=== PATIENT | female | born 1955 | race Caucasian/White ===

== ENCOUNTER 2017-04-11 06:26 | Day surgery (SDC) | payer BC, SELFPAY ==
[2017-04-11] VITALS (13 sets, daily range): BP systolic 84–135; BP diastolic 45–85; PULSE 60–73; RESP 16–18; TEMP 36.2–36.8; O2SAT 94–99; BMI 27.3
--- NOTE | 2017-04-11 | IMM_PTH ---
PATIENT: MICHELLE BETANCOURT LOC: EN U#:[id number] AGE/SX: 62/F ROOM: RE04/11/[address]: Dr. Ray Casas MD : 1955 BED: DIS: 04/11/2017 SPEC #: [id number] RECD: 04/12/17 11:26 STATUS: LUI REIsabelle #: [id number] KEARA: 04/11/17 00:[address]: Ray Casas DEPT: IMMUNOHISTOCHEMISTRY RECD BY: Caty Leyva ENTERED: 04/12/17 11:27 SP TYPE: IMMUNO OTHR DR: Dr. Nathaniel Veliz MD Tissues: B - Stomach, NOS Procedures: H Pylori (initial) PHYSICIAN & INSTITUTION [place] [address] SPECIMEN INFORMATION: Tissue Source: B ? Antrum biopsy Clinical Info: GERD Specimen Number: [id number] CPT code: 65332 METHODOLOGY: Deparaffinized sections of prefer/formalin-fixed tissue or PAP/DQ stained slides are incubated with monoclonal/polyclonal antibodies/oligonucleotide probes. Localization is made via biotin free immunoperoxidase method. Appropriate controls are performed and reacted as expected. Results on target cell population are indicated in the following table: RESULTS: ANTIBODY / CLONE RESULT Block B H Pylori (polyclonal) negative These tests were developed and their performance characteristics determined by [facility]. They may not have been cleared or approved by the U.S. Food and Drug Administration. The FDA has determined that such clearance or approval is not necessary. INTERPRETATION: B. Antrum, biopsy: Negative for Helicobacter pylori organisms. SJ:laura 04/14/17
--- NOTE | 2017-04-11 07:35 | EGD_PTH ---
PATIENT: MICHELLE BETANCOURT LOC: EN U#:[id number] AGE/SX: 62/F ROOM: RE04/11/[address]: Dr. Ray Casas MD : 1955 BED: DIS: 04/11/2017 SPEC #: [id number] RECD: 04/11/17 12:30 STATUS: LIU SHARDA #: [id number] KEARA: 04/11/17 07:[address]: Ray Casas DEPT: SURGICAL PATHOLOGY RECD BY: Dale Valdes ENTERED: 04/11/17 13:27 SP TYPE: EGD BIOPSY OT DR: Dr. Nathaniel Veliz MD Tissues: A - Duodenum, NOS B - Gastric mucous membrane C - Esophageal mucous membrane D - Esophageal mucous membrane Procedures: Surgery Specimen Level IV HEADER OPERATION: EGD with biopsy PRE-OP DIAGNOSIS: GERD TISSUE SUBMITTED: A ? Biopsy duodenum, B ? Biopsy antrum, C ? Biopsy distal esophagus, D ? Mid esophagus MICROSCOPIC DIAGNOSIS A. Duodenum, biopsy: Fragment of small intestinal mucosa, no pathologic diagnosis. B. Antrum, biopsy: Mild gastritis. C. Distal esophagus, biopsy: Fragments of squamous epithelium, no pathologic diagnosis. D. Mid esophagus, biopsy: Fragment of squamous epithelium, no pathologic diagnosis. Fragment of food particle. SJ:laura 04/12/17 COMMENT B. Immunohistochemistry ([id number]) for H. pylori will be performed and results will be reported separately. MICROSCOPIC DESCRIPTION Slides are reviewed. B. The specimen shows fragments of gastric mucosa with chronic inflammatory cell infiltrates in the lamina propria consisting of lymphocytes and plasma cells, consistent with mild chronic gastritis. Focal mucosal congestion and hemorrhage are also noted. GROSS DESCRIPTION A - Received in fixative is one container labeled with the patient's name and designated biopsy duodenum. The specimen consists of one irregular fragment of light gonzales soft tissue that measures 0.4 x 0.2 x 0.1 cm. The specimen is totally submitted in one cassette. B - Received in fixative is one container labeled with the patient's name and designated antrum. The specimen consists of one irregular fragment of light gonzales soft tissue that measures 0.3 x 0.2 x 0.1 cm. The specimen is totally submitted in one cassette. C - Received in fixative is one container labeled with the patient's name and designated distal esophagus. The specimen consists of two irregular fragments of light gonzales soft tissue that in aggregate measure 0.4 x 0.2 x 0.1 cm. The specimen is totally submitted in one cassette. D - Received in fixative is one container labeled with the patient's name and designated mid esophagus. The specimen consists of one irregular fragment of light gonzales soft tissue that measures 0.5 x 0.2 x 0.1 cm. The specimen is totally submitted in one cassette. / SJ:rg 04/11/17 TC:3 CPT: 72146 x4
--- NOTE | 2017-04-11 07:47 | PCM.OPRPT ---
Problem List (1) GERD (gastroesophageal reflux disease) Status: Acute Report of Operation Date of Procedure: 04/11/17 Pre-Operative Diagnosis: Gastroesophageal reflux disease Post-Operative Diagnosis: Hiatal hernia. Retained gastric contents/food. Antral gastritis Surgery/Procedure Performed:: Esophagogastroduodenoscopy with duodenal and antral and distal and mid esophageal biopsies Description of Surgical Findings:: Timeout and informed consent was obtained. 62-year-old female was taken to the endoscopy suite. Her oropharynx was anesthetized with Cetacaine. She was placed in the left lateral decubitus position. Throughout the procedure total of 100 mg Demerol and 3.5 g of Versed were given as intravenous sedation. Under direct visitation gastroscope was inserted in the proximal mid distal esophagus inspected. A moderate hiatal hernia noted. The EG junction was at 40 cm. I did not see any obvious inflammatory changes of the distal esophagus. Upon entering the stomach however immediately retained food products were noted. This was apparently 8 hours after the last solid food was eaten. There was mild diffuse erythema of the antrum. The scope was advanced through the pylorus. The first and second portions of the duodenum inspected. This did not appear to be remarkable. Duodenal biopsy was obtained. The scope was withdrawn retroflexed hiatal hernia noted and photographs obtained. The food products were jose de jesus in the greater curvature. Partially obstructing view to the amount of food present. The scope was placed back in antegrade viewing area. There was certain chronic erythema of the antrum. Biopsy was obtained. Excess fluid and air was aspirated free. The scope was withdrawn. The fluid was solid enough that I could not irrigate it or remove it. Distal esophageal biopsies were obtained. Mid esophageal biopsies were obtained. Subsequently the pH probe was appropriately checked and then it was inserted to 34 cm. Suction was applied. The device was in the release. I reinserted the gastroscope to assure positioning of the probe. No apparent complications. Impression Hiatal hernia. No obvious findings of esophagitis. Diffuse antral gastritis noted with retained solid food. Successfully deployed pH probe. The patient will return to the office for pathology and pH probe results. Pending these results might consider gastric emptying study. Cc: Dr. Ivan Casas M.D., F.A.C.S. Type of Anesthesia:: IV Sedation
== END 2017-04-11 09:01 | disposition home or self-care (01) ==
LOC: EN 06:27 → AC 06:30
PROVIDERS: Family Provider Family Medicine; PCP Family Medicine; Visit Provider Surgery
PROC: (CPT 43235; principal; 2017-04-11 07:00)
DX: K29.70 Gastritis, unspecified, without bleeding (principal); K44.9 Diaphragmatic hernia without obstruction or gangrene; K59.00 Constipation, unspecified; M81.0 Age-related osteoporosis without current pathological fracture; I10 Essential (primary) hypertension; Z79.82 Long term (current) use of aspirin; Z79.899 Other long term (current) drug therapy; Z87.891 Personal history of nicotine dependence
CPT/HCPCS: 43239; 88305; 88342; J7120

== ENCOUNTER → 2017-04-19 12:04 | Outpatient (CLI) | payer BC, SELFPAY ==
[2017-04-11 07:01] VITALS: BMI 27.3
[2017-04-11 08:59] VITALS: BP 107/68
--- NOTE | 2017-04-19 12:05 | NM_ITS ---
CLINICAL: 62-year-old female with history of abdominal pain. SEMI-SOLID PHASE 99m Tc SULFUR COLLOID GASTRIC EMPTYING STUDY COMPARISON: None available FINDINGS: The patient was administered 1.1 mCi of 99m Tc sulfur colloid mixed with oatmeal and consumed per os. Image acquisitions in the anterior-posterior projections for a total of 60 minutes. There is prompt visualization of the stomach. There is no gastroesophageal reflux identified. The T1/2 linear fit was calculated to be 46.6 minutes, (Normal: 12-56 minutes). NM/Gastric Emptying Study IMPRESSION: 1. NORMAL 99m Tc sulfur colloid semi-solid phase (oatmeal) gastric emptying imaging examination. A. There is normal and preserved semi-solid phase gastric emptying compared to normal controls with maintained first order kinetics throughout all components of the examination. (Jakub et al, J Nucl Med Tech 38: 186, 2010). Electronically Signed: Beau Andrade DO at 10:43 EST Tel , Service support ,
== END ==
PROVIDERS: Family Provider Family Medicine; PCP Family Medicine; Visit Provider Surgery
DX: R10.9 Unspecified abdominal pain (principal); K59.00 Constipation, unspecified
CPT/HCPCS: 78264; A9541

== ENCOUNTER → 2017-06-01 13:47 | Outpatient (CLI) | payer BC, SELFPAY ==
--- NOTE | 2017-06-01 13:50 | VDLE_ITS ---
Reason For Study: LEG PAIN AND SWELLING/Lump LT Anterior calf RIGHT LEFT GSV is normal. GSV is normal. CFV is compressible, spontaneous, phasic, CFV is compressible, spontaneous, phasic, competent and demonstrates normal competent, and demonstrates normal augmentation. augmentation. FV is compressible, spontaneous, phasic, FV is compressible, spontaneous, phasic, competent and demonstrates normal competent and demonstrates normal augmentation. augmentation. POP V is compressible, spontaneous, phasic, POP V is compressible, spontaneous, phasic, competent and demonstrates normal competent and demonstrates normal augmentation. augmentation. T/P Trunk is compressible. T/P Trunk is compressible. PTV is compressible. PTV is compressible. RT PerV is compressible. LT PerV is compressible. Procedure Heterogenous structure noted Lt anterior Exam performed in department. prox calf measuring 1.2 x .46 cm. Non- A preliminary report was called and/or faxed vascular. to Dr. Veliz. Interpretation Summary No evidence for acute deep venous thrombosis bilateral lower extremities with patent and compressible bilateral great saphenous veins. 1.2 x 0.46cm non-vascular soft tissue mass left anterior proximal calf. History of fracture/repair suggests possible hematoma--clinical correlation would be appropriate. Ordering Physician: Nathaniel Veliz Referring Physician: Nathaniel Veliz Performed By: Monica Sorensen RVT
== END ==
PROVIDERS: Family Provider Family Medicine; PCP Family Medicine; Visit Provider Family Medicine
DX: M79.89 Other specified soft tissue disorders (principal); M79.661 Pain in right lower leg; M79.662 Pain in left lower leg
CPT/HCPCS: 93970

== ENCOUNTER → 2018-05-11 14:11 | Outpatient (CLI) | payer BC, SELFPAY | PROVIDERS: Family Provider Family Medicine; PCP Family Medicine; Referring Provider Internal Medicine Cardiovascular Disease; Visit Provider Internal Medicine Cardiovascular Disease | DX: R00.2 Palpitations (principal); I10 Essential (primary) hypertension | CPT/HCPCS: 93225; 93226 ==

== ENCOUNTER → 2018-07-09 16:24 | Outpatient (CLI) | payer BC, SELFPAY ==
--- NOTE | 2018-07-09 | ASPS_PTH ---
PATIENT: MICHELLE BETANCOURT [facility] U#:[id number] AGE/SX: 70/F ROOM: RE07/09/[address]: Dr. Ray Casas MD : 1955 BED: DIS: SPEC #: [id number] RECD: 07/09/18 16:15 STATUS: LUI SHARDA #: [id number] KEARA: 07/09/18 00:[address]: Ray Casas DEPT: CYTOLOGY RECD BY: River Diallo ENTERED: 07/10/18 12:06 SP TYPE: ASPIRATION OTHR DR: Dr. Nathaniel Veliz MD Tissues: Thyroid gland, NOS Procedures: Special Stain Group II Cytology Other HEADER OPERATION: Left thyroid FNA PRE-OP DIAGNOSIS: Left thyroid nodule TISSUE SUBMITTED: Left thyroid slides x8 DIAGNOSIS CYTOLOGY Left thyroid nodule, FNA (smears): Consistent with chronic lymphocytic thyroiditis. Adequate for evaluation. See cytology study and comment. SJ:laura 07/11/18 COMMENT Correlation with clinical, radiologic findings and appropriate follow up are necessary. CYTOLOGY STUDY Slides are reviewed. The specimen predominantly consists of polymorphous population of lymphocytes. CYTOLOGY GROSS Received are eight smears labeled with the patient's name and designated per the requisition as left thyroid. Submitted for staining. / 07/10/18 TC:3 CPT: 88949
[2018-07-09 13:34] VITALS: BMI 29.0
== END ==
PROVIDERS: Family Provider Family Medicine; PCP Family Medicine; Referring Provider Surgery; Visit Provider Surgery
DX: E04.1 Nontoxic single thyroid nodule (principal)
CPT/HCPCS: 88161; 88313

== ENCOUNTER → 2019-01-24 11:32 | Outpatient (CLI) | payer MEDICARE, SELFPAY ==
[2018-07-09 13:34] VITALS: BMI 29.0
--- NOTE | 2019-01-24 14:16 | STRESSREP_ITS ---
Stress Test Report Date: 01/24/2019 Procedure: Exercise tolerance test Indications: Chest pain Consent: Per the patient Procedure: The patient exercised on a Eamon protocol for 5 minutes and 59 seconds achieving a peak heart rate of 151 bpm (97% predicted maximal heart rate) with a peak blood pressure 152/82 mmHg and a peak MET capacity of approximately 7 mET's. The baseline ECG demonstrated sinus rhythm. The peak exercise ECG demonstrated sinus tachycardia with no significant ischemic EKG changes. Patient had occasional PVCs and multiple PACs at peak exercise. The functional capacity was considered normal for age. The patient had no complaint of chest discomfort during exercise or recovery. The examination was discontinued secondary to dyspnea, lightheadedness. Impression: 1. Technically adequate (percent predicted maximal heart rate greater than 85%) exercise tolerance test 2. Stress test is negative for exercise-induced chest pain. 3. Stress test test is negative for exercise-induced EKG changes of ischemia. 4. Functional capacity is normal for age This note was generated with [employer] software. It may contain incorrect words, spelling, and punctuation that were not noted in checking the note before signing.
== END ==
PROVIDERS: Family Provider Family Medicine; PCP Family Medicine; Referring Provider Family Medicine; Visit Provider Family Medicine
DX: R07.89 Other chest pain (principal)
CPT/HCPCS: 93017

== ENCOUNTER 2020-01-06 17:30 | Outpatient (RCR) | payer MEDICARE, OTHER, SELFPAY ==
[2018-07-09 13:34] VITALS: BMI 29.0
--- NOTE | 2019-11-25 17:44 | HP.PTEVAL ---
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 Date of Evaluation: 11/25/19 Physical Therapist: Miley Baca, PT, Cert MDT - Visit Plan Frequency: 2-3x /Week Duration: 4-6 Weeks Plan: AQUATIC THERAPY FOR PAIN RELEIF, POSTURE CORRECTION/STRENGTHENING, INSTRUCTION IN APPROPRIATE BODY MECHANICS AND ACTIVITY MODIFICATIONS. DLS STARTING WITH A NEUTRAL SPINE PROGRESSING ROM TOLERATED. LOVELY LE ROM, STRETCHING AND STRENGTHENING. HEP INSTRUCTION. 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 Disability: NO. Present symptoms: MID AND LOW BACK PAIN USUALLY MORE L > RIGHT. LEFT LE PAIN, NUMBNESS AND TINGLING TO THE ANKLE. Present since: YEARS WITH INCREASED PAIN 2007. Pain Scale: WORST 9/10, LEAST 2/10. Currently: 05/20. Commenced as a result of: SCOLIOSIS, DEGENERATION. THROWN OFF A TRACTOR IN 2007 AND BROKE LEFT LEG. ORIF LEFT TIBIA 2007. Symptoms at onset: BACK. Worse: SITTING IN STRAIGHT CHAIRS, DOING A LOT OF WALKING, TRYING TO DO NORMAL HOUSEWORK, GARDENING. Better: RESTING IN A RECLINER. Disturbed sleep: YES. Previous history/Previous treatment: NO BACK SURGERY. NO ALTA'S EXCEPT CERVICAL ALTA ABOUT 6 YEARS AGO. HAS TRIED PT FOR BACK AND LEG BUT DOESN'T SEEM TO HELP. HAS BEEN SEEING A CHIROPRACTOR FOR ABOUT TWO YEARS FOR ADJUSTMENTS, STRETCHING AND HAS DONE SOME PT THERE TOO - STATES IT HELPED FOR AWHILE BUT THE TRACTION HURT AND STARTED TO MAKE IT WORSE. HAS NOT BEEN BACK TO CHIR[facility] IN ABOUT 5 MONTHS. Coughing/sneezing/straining: NOT USUALLY UNLESS BACK IS FLARED UP. Gait: NORMAL UNLESS GOES TOO FAR. Difficulty initiating urinatin: NO. Unexplained weight loss: NO. Imaging: RECENT MRI AT [facility] - PER PATIENT REPORT THE MRI SHOWED SCOLIOSIS THAT IS IMPEDING ON L4 L5 NERVES. PMH: LOW BLOOD PRESSURE (96/50 LAST NIGHT). STATES HER PCP HAS REFERRED HER TO A EMERGENCY VEHICLE DRIVER. ANEMIA. VITAMIN DEFICIENCIES. OTHER: PATIENT REPORTS THAT SHE GETS LIGHT HEADED SOMETIMES DUE TO HER LOW BLOOD PRESSURE AND SHE IS GOING TO MAKE AN SHEREEN'T WITH A EMERGENCY VEHICLE DRIVER. OTHER: STATES DR. HOGAN (SPINE SURGEON) DOES NOT RECOMMEND SURGERY AT THIS TIME. WANTS HER TO TRY PT AND PAIN MGMT FIRST. HAS NOT SET UP PAIN MGMT CONSULT YET. - Objective Sitting/Standing Posture: POOR. SCOLIOSIS. LEFT ILIAC CREST HIGHER THAN RIGHT. Active Correction of posture: WORSE. Other Observations: INDEP GAIT INTO PT WITHOUT AD OR LOB. INDEP TRANSFER SIT TO STAND WITHOUT UE ASSIST. Motor deficit: RIGHT LE GROSSLY 5/5 EXCEPT HIP GRADED 4/5. LLE GROSSLY 4/5 WITH LEFT HIP 4-/5. Sensory deficit: DECREASED L THIGH AND LEG LIGHT TOUCH SENSATION COMPARED TO THE RIGHT. ROM deficit: MILD LOVELY LE HS AND GASTROC SOLEUS COMPLEX TIGHTNESS. Reflexes: UNABLE TO ELICIT LOVELY LE DTR'S. Dural Signs: POSITIVE LOVELY LE'S. Lumbar mvmt loss: flex - MOD. ext - WING. R SG - WING. L SG - MOD. PATIENT C/O INCREASED BACK PAIN AND TIGHTNESS WITH LUMBAR ROM TESTING ALL PLANES WITH LSG>RIGHT SG. Core strength: POOR. Palpation: TENDERNESS WITH PALPATION OF LOVELY LUMBAR, SACRAL, BUTTOCK AND HIP REGIONS LEFT > RIGHT. TREATMENT: NEUROMUSCULAR REEDUCATION - RETRAINING OF MVMT AND POSTURE FOR SITTING, LYING AND STANDING ACTIVITIES. - Goals Goal 1:: DECREASE C/O BACK, LOVELY HIP AND LEFT LE SX'S. Goal Time Frame: 4-6 Weeks Goal 2:: IMPROVE PERSONAL CARE, LIFTING, WALKING, SITTING, STANDING, SOCIAL LIFE, TRAVEL, WORK AND HOMEMAKING FUNCTION Goal Time Frame: 4-6 Weeks Goal 3:: INSTRUCT IN PROPHYLAXIS Goal Time Frame: 4-6 Weeks - Anticipated Interventions Patient/Client Instruction: Educate patient on: Condition, Plan of Care, Risk Factors, Benefits of Fitness Program For the Purpose of:: To improve self management Therapeutic Exercise to Include: Strength training, Body mechanics, Postural training, Flexibilty training, Neuromotor development, In an aquatic setting, Dynamic Lumbar Stabilization For the Purpose of:: To decrease pain, To increase ROM, To improve muscle performance and motor function, To increase tolerance to activity/condition/position, To improve ability of physical actions for home/community/work/leisure, To improve gait and locomotor functions Thank you for the opportunity to evaluate your patient. For Medicare and Medicare HMO plans, please review the plan of care and approve it. It will need to be FAXED BACK to us at [phone] for Medicare purposes. For Medicare only, by signing this I certify the plan of care. Please let me know if there are questions or concerns regarding this plan of care. Physician Signature: Date:
--- NOTE | 2020-01-06 17:59 | HP.PTDCSUM ---
It has been my pleasure to treat MICHELLE GARRETT referred by ARIS HOGAN, with the diagnosis of SCOLIOSIS DUE TO DEGENERATIVE DISEASE OF THE SPINE for a total of 8 visit(s). Discharge Date: Please see the following information for a summary of their discharge status. Subjective: PATIENT REPORTS HER WALKING AND BEING ABLE TO LIFT AND SIT HAVE IMPROVED. SHE REPORTS SLEEP IS BETTER NOW TOO. USE OF THE PILLOW BETWEEN HER KNEES HAS HELPED. PATIENT REPORTS SHE HAS THE EX'S AND WOULD LIKE TO CONTINUE EX'S ON HER OWN AT THIS POINT. PATIENT REPORTS SHE IS REALLY BUSY AT WORK FROM NOW March MAKING IT DIFFICULT TO COME TO THERAPY. FOLLOW UP WITH DR. HOGAN PENDING MONDAY. PATIENT REPORTS SHE DECIDED NOT TO GO TO PAIN MGMT YET. PATIENT REPORTS SHE REALLY ENJOYED THE WATER THERAPY. Mid to lower back Pain Intensity (Out of 10): 5 Hip and left leg Pain Intensity (Out of 10): 4 % Improvement: 60 Objective/Function: PATIENT WAS SEEN TODAY FOR RE-ASSESSMENT OF PROGRESS TOWARD THE SET PT GOALS AND THE NEED FOR FURTHER PHYSICAL THERAPY VS READINESS FOR DISCHARGE. PATIENT HAS IS PROGRESSING WITH PT AND IS A GOOD CANDIDATE TO CONTINUE PT BASED ON PROGRESS MADE AND ROOM FOR MORE IMPROVEMENT BUT SHE DOES NOT WANT TO CONTINUE AT THIS TIME. UPON EXAM TODAY: Motor deficit: RIGHT LE GROSSLY 5/5 EXCEPT HIP GRADED 4/5. LLE GROSSLY 4/5 WITH LEFT HIP 4-/5. Sensory deficit: DECREASED L THIGH AND LEG LIGHT TOUCH SENSATION COMPARED TO THE RIGHT. ROM deficit: WFL. Dural Signs: POSITIVE LOVELY LE'S. Lumbar mvmt loss: flex - MIN. ext - WING. R SG - MOD. L SG - MOD. PATIENT C/O INCREASED BACK PAIN AND TIGHTNESS WITH LUMBAR ROM TESTING ALL PLANES WITH LSG>RIGHT SG. Core strength: POOR. Palpation: TENDERNESS WITH PALPATION OF LOVELY LUMBAR, SACRAL, BUTTOCK AND HIP REGIONS LEFT > RIGHT. Goal 1:: DECREASE C/O BACK, LOVELY HIP AND LEFT LE SX'S. Goal Progress: Progressing Goal 2:: IMPROVE PERSONAL CARE, LIFTING, WALKING, SITTING, STANDING, SOCIAL LIFE, TRAVEL, WORK AND HOMEMAKING FUNCTION Goal Progress: Progressing Goal 3:: INSTRUCT IN PROPHYLAXIS Goal Progress: Progressing Plan: D/C AT PATIENTS REQUEST If there are questions or concerns regarding this patient's physical therapy, please feel free to call me at [phone]. Thank you for the referral of this patient. Sincerely, Miley Baca PT, Cert MDT
== END 2020-01-06 19:00 | disposition home or self-care (01) ==
LOC: PT 17:30
PROVIDERS: PCP Family Medicine
DX: M41.50 Other secondary scoliosis, site unspecified (principal)
CPT/HCPCS: 97112; 97113; 97162; 97164

== ENCOUNTER → 2022-02-07 | Outpatient (CLI) | payer MEDICARE, OTHER, SELFPAY ==
--- NOTE | 2022-02-07 13:52 | CT_ITS ---
STUDY: CT MAXILLOFACIAL SINUSES REASON FOR EXAM: Female, 67 years old. FACIAL PAIN RADIATION DOSAGE (If Supplied By Facility): CTDIvol = ( 33.06 ) mGy, DLP = ( 726.41 ) mGycm TECHNIQUE: The patient was scanned in a multi detector CT scanner. High resolution axial imaging was performed without the administration of intravenous contrast material. Sagittal and coronal images were reconstructed. Individualized dose optimization techniques were used for this CT. COMPARISON: None. FINDINGS: FRONTAL SINUSES: Normal aeration, without mucosal inflammatory disease. ETHMOIDAL SINUSES: Normal aeration, without mucosal inflammatory disease. MAXILLARY SINUSES: Normal aeration, without mucosal inflammatory disease. SPHENOIDAL SINUSES: Normal aeration, without mucosal inflammatory disease. There is patency of the bilateral maxillary infundibuli with normal uncinate processes, ethmoid bullae, and hiatus semilunaris. Normal bilateral middle turbinates. Normal bilateral inferior turbinates. There is a right sided nasal septal deviation with a right sided nasal septal spur. There is patency of the bilateral nasal airways. The visualized osseous structures are normal. The visualized bilateral orbital contents are normal. CT/Sinus/Facial Bone IMPRESSION: Nasal septal deviation to the right side of midline with a right-sided nasal septal spur. Electronically Signed: Randall Wan MD at 15:04 EST ,
== END | disposition home or self-care (01) ==
LOC: CT 13:51
PROVIDERS: PCP Family Medicine; Visit Provider Otolaryngology
DX: G50.1 Atypical facial pain (principal)
CPT/HCPCS: 70486

== ENCOUNTER → 2025-01-13 | Outpatient (CLI) | payer MEDICARE, OTHER, SELFPAY ==
[2025-01-13 15:10] LABS: AST(SGOT) 30 U/L (<=31); Alanine Aminotransfer ALT/SGPT 13 U/L (<=34); Albumin, Serum 4.3 g/dL (3.4-4.8); Alkaline Phosphatase 86 U/L (35-104); Anion Gap 10 (5-15); BUN 10 mg/dL (4-19); BUN/Creat Ratio 12.5 RATIO (10-20); Calcium,Total 9.3 mg/dL (7.6-11.0); Carbon Dioxide 23.9 mmol/L (21.0-32.0); Chloride 100 mmol/L (98-108); Globulin 3.1 g/dL (2.2-4.2); Glucose 86 mg/dL (70-99); Magnesium 2.4 mg/dL (1.5-2.2); Potassium 4.8 mmol/L (3.3-5.1)
== END | disposition home or self-care (01) ==
LOC: LAB 13:24
PROVIDERS: PCP Family Medicine; Referring Provider Internal Medicine Cardiovascular Disease; Visit Provider Internal Medicine Cardiovascular Disease
DX: I47.10 Supraventricular tachycardia, unspecified (principal); R00.2 Palpitations
CPT/HCPCS: 36415; 80053; 83735; 84443

== ENCOUNTER → 2025-01-31 | Outpatient (CLI) | payer MEDICARE, OTHER, SELFPAY ==
--- NOTE | 2025-01-31 11:08 | ECHOD_ITS ---
Reason For Study Reason For Study: PALPITATIONS Procedure This was a 2D Doppler, Color Flow transthoracic echocardiogram. Exam performed in department. Left Ventricle Normal size and thickness. The left ventricular ejection fraction is 60 %. Diastolic function is indeterminate. Right Ventricle Normal right ventricle. Atria The left and right atria are normal. Mitral Valve Mild (1+) mitral valve insufficiency. Tricuspid Valve Trivial tricuspid valve insufficiency. Unable to estimate RV systolic pressure due to insufficient tricuspid regurgitant envelope. Aortic Valve Trisinus/trileaflet aortic valve. Pulmonic Valve The pulmonic valve is not well visualized. Great Vessels Normal sized aortic root. Pericardium/Pleural No pericardial effusion. MMode/2D Measurements & Calculations LVIDd: 4.1 cm IVSd: 0.95 cm Ao root diam: 3.7 cm LVIDs: 2.8 cm LVPWd: 0.97 cm FS: 30.0 % LAV(MOD-bp): 26.3 ml LVAd ap4: 20.7 cm2 SV(MOD-sp4): 34.5 ml LAV(MOD-bp) Indexed: 14.8 ml/m2 LVLd ap4: 7.0 cm SI(MOD-sp4): 19.4 ml/m2 LAV(MOD-sp2): 26.0 ml EDV(MOD-sp4): 50.5 ml LAV(MOD-sp4): 24.7 ml EDV(sp4-el): 52.2 ml LVAs ap4: 10.2 cm2 LVLs ap4: 6.0 cm ESV(MOD-sp4): 16.0 ml ESV(sp4-el): 14.7 ml EF(MOD-sp4): 68.3 % EF(sp4-el): 71.9 % SV(sp4-el): 37.5 ml LA A4 area: 11.9 cm2 LA dimension(2D): 2.8 cm RA A4 area: 10.1 cm2 Time Measurements MV dec time: 0.26 sec Doppler Measurements & Calculations MV E max quinton: 62.6 cm/sec Lat Peak E' Quinton: 7.7 cm/sec Med Peak E' Quinton: 8.7 cm/sec MV A max quinton: 70.7 cm/sec E/E' lat: 8.1 E/E' med: 7.2 MV E/A: 0.89 MV V2 max: 67.5 cm/sec Ao V2 max: 95.6 cm/sec MV max P.8 mmHg MV dec slope: 238.6 cm/sec2 Ao max P.7 mmHg MV V2 mean: 43.5 cm/sec Ao V2 mean: 67.4 cm/sec MV mean P.83 mmHg Ao mean P.1 mmHg MV V2 VTI: 22.4 cm Ao V2 VTI: 24.4 cm AV (velocity ratio): 0.77 LV V1 max: 83.2 cm/sec PA V2 max: 101.6 cm/sec LV V1 max P.8 mmHg PA V2 mean: 70.1 cm/sec LV V1 mean P.3 mmHg LV V1 mean: 52.7 cm/sec LV V1 VTI: 18.8 cm ECHO/Echo Complete Interpretation Summary The left ventricular ejection fraction is 60 %. Mild (1+) mitral valve insufficiency. Ordering Physician: Marylou Ruelas Referring Physician: Marylou Ruelas Performed By: Deidra Johns RCS
== END | disposition home or self-care (01) ==
LOC: CVS 11:05
PROVIDERS: PCP Family Medicine; Referring Provider Internal Medicine Cardiovascular Disease; Visit Provider Internal Medicine Cardiovascular Disease
DX: R00.2 Palpitations (principal)
CPT/HCPCS: 93306

== ENCOUNTER → 2025-02-27 | Outpatient (CLI) | payer MEDICARE, OTHER, SELFPAY ==
--- NOTE | 2025-02-27 12:34 | CT_ITS ---
PROCEDURE: LIMITED CHEST CT CARDIAC ONLY 02/27/2025 REASON FOR EXAM: CHEST PAIN TECHNIQUE: Procedure Code: [id number] Modality: CT Procedure: LIMITED CHEST CT CARDIAC ONLY One or more dose reduction techniques were used (e.g., Automated exposure control, adjustment of the mA and/or kV according to patient size, use of iterative reconstruction technique). RADIATION DOSE SUMMARY: DLP: 1212.35 mGycm COMPARISON: None. CT/Limited Chest CT Cardiac Only IMPRESSION: Mild aortic calcification. Limited imaging of the lungs demonstrates no acute process. No pleural effusion or pneumothorax is seen in visualized areas. No adenopathy is noted. The visualized upper abdomen demonstrates no significant abnormality. Reading Location: [place] [id number]
[2025-02-27 12:40] VITALS: BP 150/70; PULSE 61; RESP 18; O2SAT 97; BMI 27.4
[2025-02-27 12:50] VITALS: BP 160/75; PULSE 69
[2025-02-27] MEDS: Nitroglycerin SL (ED/IMG/CATH) 0.4 MG TABLET SL (12:50)
[2025-02-27] MEDS: 0.9% Saline Lock 10 ML Syringe IV (13:02)
[2025-02-27 13:03] VITALS: BP 160/75; PULSE 69; RESP 18; O2SAT 97
--- NOTE | 2025-02-27 16:39 | CA.SCORE ---
Calcium Scoring Date of Study:: 02/27/25 Indications Indications: Chest pain Coronary Calcium Scoring: High-resolution Computed Tomographic imaging of the chest was performed on [02/27/2025], with particular attention paid to the coronary arteries. Images from the examination were analyzed for the presence and extent of coronary artery calcification , using coronary calcium quantification software. The patient tolerated the procedure well and there were no complications. The results of the coronary calcification analysis are provided below. Findings Coronary Artery Left Main (LM): 0 Left Anterior Descending (LAD): 18.7 Left Circumflex (LCX): 0 Right Coronary Artery (RCA): 0 Total Agatston Score: 18.7 Percentile Rankin-50 Calcium Scoring Interpretation: Different methods to categorize the overall amount of coronary plaque. Overall amount CAC SIS Visual of coronary plaque P1 Mild -100 <2 1-2 vessels with mild amount of plaque P2 Moderate 101-300 3-4 1-2 vessels with moderate amount, 3 vessels with mild amount of plaque P3 Severe 301-999 5-7 3 vessels with moderate amount, 1 vessel with severe amount of plaque P4 Extensive >1000 >8 2-3 vessels with severe amount of plaque Calcium Score: Mild: 1-2 vessels w/mild amount of plaque Conclusion: Mild focal atherosclerotic plaquing noted.
== END | disposition home or self-care (01) ==
PROVIDERS: PCP Family Medicine; Referring Provider Internal Medicine Cardiovascular Disease; Visit Provider Internal Medicine Cardiovascular Disease
DX: I47.19 Other supraventricular tachycardia (principal); R00.2 Palpitations; R07.9 Chest pain, unspecified
CPT/HCPCS: 75571; 75574; 76380; Q9967